=== PATIENT | female | born 2000 | race Caucasian/White ===

== ENCOUNTER 2021-03-10 11:26 | Emergency (ER) | payer OTHER, SELFPAY ==
--- NOTE | 2021-03-10 11:31 | ED.GENADULT ---
HPI - General Adult General Chief complaint: Chest Pain Stated complaint: elevated heart rate/heavy chest Time Seen by Provider: 03/10/21 11:31 Source: patient Mode of arrival: ambulatory Limitations: no limitations History of Present Illness HPI narrative: 20-year-old female patient presents to the [facility] with complaints of palpitations and chest heaviness that started this morning when she woke up. Patient states that her pulse started in the 170s this morning and is now gone down to the 150s. Patient states she does feel slightly lightheaded and dizzy. Denies any nausea, vomiting or diarrhea. Denies any fevers, body aches or chills. Patient does have history of anxiety and is medicated for it since she was a child. Patient states she has never had a panic attack before definitely have never had palpitations like this. Denies any of any cardiac history that she is aware of. Denies any family history of cardiac issues. Denies any shortness of breath at this time. Related Data Home Medications Medication Instructions Recorded Confirmed citalopram 20 mg PO DAILY 03/10/21 03/10/21 etonogestrel [Nexplanon] 68 mg SUBDERMAL DIRECTED 03/10/21 03/10/21 nortriptyline 50 mg PO PRN PRN 03/10/21 03/10/21 Allergies Allergy/AdvReac Type Severity Reaction Status Date / Time No Known Allergies Allergy Unknown Verified 03/10/21 11:33 Review of Systems Review of Systems: Narrative: CONSTITUTIONAL: Denies fever, chills, or sweats. EYES: Denies visual changes, redness, or discharge. ENT: Denies rhinorrhea, congestion, sore throat, or otalgia. CARDIOVASCULAR: Denies chest pain, positive palpitations, or edema. RESPIRATORY: Denies cough or dyspnea. GASTROINTESTINAL: Denies abdominal pain, nausea, vomiting, or diarrhea. GENITOURINARY: Denies dysuria or hematuria. SKIN: Denies rash or itching. MUSCULOSKELETAL: Denies back pain, joint pain, or myalgia. NEUROLOGIC: Denies headache, numbness, or weakness. Positive lightheadedness and dizziness PSYCHIATRIC: Denies anxiety or depression. [facility] Social History Social History Gender identity (if verbalized by the patient): Female Comments At the time of my signature I agree with nursing past medical history, surgical, social, and family history. There is no relevant family history pertinent to the presenting complaint. Exam Narrative: Exam Narrative: GENERAL: Well-appearing, well-nourished, and in no acute distress. HEAD: Normocephalic, atraumatic. EYES: PERRLA and EOMI. ENT: Nares clear, no rhinorrhea or epistaxis. Mucous membranes moist. NECK: Supple. No lymphadenopathy CHEST: Clear to auscultation. No respiratory distress. Patient able to talk in clear complete sentences, no tripoding noted. HEART: Tachycardia noted. No murmur heard. Strong peripheral pulses. ABDOMEN: Soft, nontender, nondistended, normal active bowel sounds. EXTREMITIES: Normal range of motion. No edema. SKIN: Warm, dry, no rash. NEURO: No focal deficits. Alert and oriented x3. Course Vital Signs Vital signs: Vital Signs Temperature 36.8 C 03/10/21 11:34 Pulse Rate 157 H 03/10/21 11:34 Respiratory Rate 18 03/10/21 11:34 Blood Pressure 133/94 H 03/10/21 11:34 Pulse Oximetry 99 03/10/21 11:34 Temperature 36.8 C 03/10/21 11:48 Pulse Rate 157 H 03/10/21 11:48 Respiratory Rate 18 03/10/21 11:48 Blood Pressure 133/94 H 03/10/21 11:48 Pulse Oximetry 99 03/10/21 11:48 Vital signs reviewed The patient has been informed that they may have pre-hypertension or Hypertension based on a BP reading in the department. I recommend that the patient call the primary care provider listed on their discharge instructions or a physician of their choice this week to arrange follow up for further evaluation of possible pre-hypertension or Hypertension Transfer Transfered to: [place] Transfer rationale: Tachycardia Accepting physician: Linda
[2021-03-10 11:34] VITALS: BP 133/94; PULSE 157; RESP 18; TEMP 36.8; O2SAT 99
--- NOTE | 2021-03-10 11:46 | ECG_ITS ---
Measurements Intervals [place] Rate: 150 P: 72 NM: 138 QRS: 87 QRSD: 81 T: 36 QT: 325 QTc: 514 Interpretive Statements SINUS TACHYCARDIA, POSSIBLE ATRIAL FLUTTER DELAYED PRECORDIAL R/S TRANSITION BASELINE ARTIFACT- I, II, AVR ABNORMAL ECG Electronically Signed On 03-10-2021 13:00:47 CDT by Jamal Rondon D.O.
[2021-03-10 11:48] VITALS: BP 133/94; PULSE 157; RESP 18; TEMP 36.8; O2SAT 99
== END 2021-03-10 12:10 | disposition short-term general hospital (02) ==
PROVIDERS: Emergency Provider Nurse Practitioner Family
DX: R00.2 Palpitations (principal); R94.31 Abnormal electrocardiogram [ECG] [EKG]
CPT/HCPCS: 93005; 99203; G0463

== ENCOUNTER 2021-03-10 12:20 | Emergency (ER) | payer OTHER, SELFPAY ==
[2021-03-10] VITALS (17 sets, daily range): BP systolic 116–142; BP diastolic 75–93; PULSE 95–155; RESP 10–23; TEMP 36.6; O2SAT 98–100
--- NOTE | ~2021-03-10 | XR_ITS ---
XR chest 2V DATE: 03/10/2021 12:46 INDICATION: Chest pain, chest tightness, heart palpitations, lightheadedness TECHNIQUE: PA and lateral views COMPARISON: None FINDINGS: Normal heart size. Pectus excavatum. No pulmonary infiltrate or consolidation, pleural effu arin or pulmonary vascular congestion or pneumothorax. Included skeletal structures are unremarkable otherwise. IMPRESSION: No active cardiopulmonary disease Pectus excavatum Reviewed, dictated and finalized at location A.
--- NOTE | 2021-03-10 12:26 | ECG_ITS ---
Measurements Intervals [place] Rate: 103 P: 59 NM: 147 QRS: 78 QRSD: 89 T: 36 QT: 338 QTc: 443 Interpretive Statements SINUS TACHYCARDIA BORDERLINE T WAVE ABNORMALITY- INFERIOR LEADS ABNORMAL ECG Electronically Signed On 03-10-2021 14:04:46 CDT by Jamal Rondon D.O.
--- NOTE | 2021-03-10 12:31 | ED.CHESTPAIN ---
HPI - Chest Pain General Chief Complaint: Chest Pain Stated Complaint: tachy Time Seen by Provider: 03/10/21 12:31 Source: patient Mode of arrival: ambulatory Limitations: no limitations History of Present Illness HPI narrative: Patient is a 20-year-old female who presents from urgent care for evaluation of palpitations and tachycardia. Patient states that she has had palpitations over the past 4 to 5 days, experiencing chest pain today. Denies any pleuritic pain, shortness of breath or weakness. No fever or chills. Patient states she has a pressure in the center of her chest without radiation to the back, jaw, shoulder or arm. No associated diaphoresis. Patient does feel anxious and lightheaded. She does not smoke. No recent travel. No history of Covid. She has received 1 vaccination and her vaccine series. She has a implanted Nexplanon for control. No history of blood clot. Related Data Home Medications Medication Instructions Recorded Confirmed citalopram 20 mg PO DAILY 03/10/21 03/10/21 etonogestrel [Nexplanon] 68 mg SUBDERMAL DIRECTED 03/10/21 03/10/21 nortriptyline 50 mg PO PRN PRN 03/10/21 03/10/21 Allergies Allergy/AdvReac Type Severity Reaction Status Date / Time No Known Allergies Allergy Unknown Verified 03/10/21 12:35 Review of Systems Review of Systems: Narrative: CONSTITUTIONAL: Denies fever, chills, or sweats. EYES: Denies visual changes, redness, or discharge. ENT: Denies rhinorrhea, congestion, sore throat, or otalgia. CARDIOVASCULAR: Reports chest pain and palpitations RESPIRATORY: Denies cough or dyspnea. GASTROINTESTINAL: Denies abdominal pain, nausea, vomiting, or diarrhea. GENITOURINARY: Denies dysuria or hematuria. SKIN: Denies rash or itching. MUSCULOSKELETAL: Denies back pain, joint pain, or myalgia. NEUROLOGIC: Denies headache, numbness, or weakness. PSYCHIATRIC: Reports anxiety [facility] Social History Social History Gender identity (if verbalized by the patient): Female Exam Narrative: Exam Narrative: GENERAL: Awake, alert, conversant HEAD: Normocephalic, atraumatic. EYES: PERRLA and EOMI. ENT: Nares clear, no rhinorrhea or epistaxis. Mucous membranes moist. NECK: Supple. CHEST: No respiratory distress, breathing even and non labored HEART: Tachycardic rate, sinus rhythm, no murmurs, rubs or gallops ABDOMEN:Non distended, non tender EXTREMITIES: Normal range of motion. No edema. SKIN: Warm, dry, no rash. NEURO:No focal deficits. Alert and oriented x3 Course Vital Signs Vital signs: Vital Signs Pulse Rate 152 H 03/10/21 12:30 Respiratory Rate 10 L 03/10/21 12:30 Pulse Oximetry 100 03/10/21 12:30 Pulse Rate 98 03/10/21 15:01 Respiratory Rate 13 03/10/21 15:01 Blood Pressure 116/75 03/10/21 15:00 Pulse Oximetry 98 03/10/21 15:01 MDM - Chest Pain MDM Narrative Medical decision making narrative: Patient presenting for evaluation of palpitations and chest pain. At the time of assessment, ABCs are intact and vital signs are notable for sinus tachycardia in the 150s. No hypotension. Patient is somewhat anxious but given the rate, seems more consistent with possible atrial dysrhythmia. IV access obtained and labs were drawn. Laboratory results are reassuring. No electrolyte derangement. Patient is not hyperthyroid. Troponins are unremarkable. Chest x-ray unremarkable. D-dimer is not elevated, thus CTA not obtained. Patient was given a dose of Lopressor and heart rate improved to the 90s. Spoke with cardiology, Dr. Monahan recommended oral Lopressor 12.5 daily and follow-up with them tomorrow in office. Differential Diagnosis Differential diagnosis: Likely stable angina, atypical chest pain and chest pain Lab Data Attestation: I reviewed the patient's lab results. Result diagrams: 03/10/21 12:36 03/10/21 12:36 Labs: Lab Results 03/10/21 03/10/21
[2021-03-10 12:46] LABS: Basophils Percent Auto 0.5 % (0.2-1.2); Eosinophils Percent Auto 0.3 % (0-4.4); Hematocrit 45.3 % (37.0-47.0); Hemoglobin 15.6 g/dL (12.0-15.0); Immature Granulocyte Absolute 0.02 K/mm3 (0.00-0.031); Immature Granulocyte Percent A 0.3 % (0-0.5); Lymphocytes Absolute Auto 2.23 K/mm3 (0.9-3.2); Lymphocytes Percent Auto 35.2 % (18.3-44.2); Mean Corpuscular HGB Conc 34.4 g/dl (32-36); Mean Corpuscular Hemoglobin 31.1 pg (26-34); Mean Corpuscular Volume 90.2 fl (80-100); Mean Platelet Volume 10.4 fl (7.4-10.4); Monocytes Absolute Auto 0.3 K/mm3 (0.1-0.6); Monocytes Percent Auto 5.2 % (2.6-8.5); Neutrophils Absolute Auto 3.7 K/mm3 (1.3-6.7); Neutrophils Percent Auto 58.5 % (45.5-73.1); Platelet Count Result 326 k/mm3 (150-375); Red Blood Count 5.02 M/mm3 (4.2-5.4); Red Cell Distribution Width 12.5 % (11.5-14.5); White Blood Count 6.3 K/mm3 (4.5-10.0)
[2021-03-10 12:55] LABS: Anion Gap 8 mmol/L (8-16); Blood Urea Nitrogen 9 mg/dL (7-17); Calcium 9.5 mg/dL (8.4-10.2); Carbon Dioxide 28 mmol/L (22-30); Chloride 103 mmol/L (98-107); Estimated CRCL calculation 81 ml/min; Estimated Glomerular Filt Rate > 60; Glucose 114 mg/dL (65-105); Potassium 3.9 mmol/L (3.4-5.0); Sodium 139 mmol/L (137-145)
--- NOTE | 2021-03-10 12:58 | PC.NURSE ---
called lab to add on ddmier and tsh. Spoke with Loren
[2021-03-10 13:00] LABS: INR 0.9; Prothrombin Time 12.4 Seconds (11.1-14.7)
[2021-03-10 13:01] LABS: Partial Thromboplastin Time 31.4 SECONDS (22.3-36.8)
[2021-03-10] MEDS: SODIUM CHLORIDE 0.9% IV 1,000 ML 999 ML IV CONT (13:02)
[2021-03-10] MEDS: ASPIRIN 81 MG CHEWABLE TABLET 324 MG PO (13:02)
[2021-03-10 13:07] LABS: Troponin I < 0.012 ng/mL (0.000-0.034)
[2021-03-10 13:09] LABS: D Dimer 0.35 ug/mL (<0.48)
[2021-03-10] MEDS: METOPROLOL TARTRATE INJ 5 MG/5 ML VIAL IV PUSH (13:18)
--- NOTE | 2021-03-10 13:54 | ECG_ITS ---
Measurements Intervals [place] Rate: 152 P: 75 CT: 139 QRS: 85 QRSD: 85 T: 49 QT: 318 QTc: 507 Interpretive Statements SINUS TACHYCARDIA, POSSIBLE ATRIAL FLUTTER DELAYED PRECORDIAL R/S TRANSITION BORDERLINE ST-T WAVE ABNORMALITY- ANTEROLAT/INF LEADS ABNORMAL ECG Electronically Signed On 03-10-2021 20:11:54 CDT by Jamal Rondon D.O.
[2021-03-10 15:37] LABS: Troponin I < 0.012 ng/mL (0.000-0.034)
--- NOTE | 2021-03-10 20:05 | PC.NURSE ---
Ritu on the phone requesting approval to dispense 25mg tablets and cut that tablet in half to equal 12.5mg (prescribed amount). Per ERP Dr. Mcarthur that is ok.
== END 2021-03-10 15:53 | disposition home or self-care (01) ==
PROVIDERS: Emergency Provider Emergency Medicine; PCP Internal Medicine
DX: R00.2 Palpitations (principal); R00.0 Tachycardia, unspecified; R94.31 Abnormal electrocardiogram [ECG] [EKG]
CPT/HCPCS: 36415; 71046; 80048; 84443; 84484; 85025; 85380; 85610; 85730; 93005; 96361; 96374; 99284; A9270; J7030

== ENCOUNTER 2021-03-19 21:08 | Emergency (ER) | payer OTHER, SELFPAY ==
--- NOTE | ~2021-03-19 | XR_ITS ---
EXAMINATION: XR chest 2V DATE: 03/19/2021 21:36 INDICATION: Shortness of breath and tachycardia TECHNIQUE: PA and lateral views of the chest were obtained. COMPARISON: Chest radiograph dated 03/10/21 FINDINGS: The lungs remain clear with no focal airspace opacities, pulmonary edema, pleural effusion or pneumot horax. The cardiomediastinal silhouette is normal. Visualized bones and soft tissues are unremarkable . IMPRESSION: 1. Normal chest radiograph. Reviewed, dictated and finalized at location A. IMPRESSION: 1. Normal chest radiograph.
[2021-03-19 21:18] VITALS: BP 138/100; PULSE 144; RESP 18; TEMP 36.9; O2SAT 100
--- NOTE | 2021-03-19 21:22 | ECG_ITS ---
Measurements Intervals [place] Rate: 136 P: 69 CO: 137 QRS: 99 QRSD: 86 T: 9 QT: 330 QTc: 498 Interpretive Statements SINUS TACHYCARDIA RIGHT AXIS DEVIATION ST-T WAVE ABNORMALITY IN ANTEROLAT/INF LEADS- CONSIDER ISCHEMIA ABNORMAL ECG Electronically Signed On 03-20-2021 7:12:42 CDT by Jamal Rondon D.O.
[2021-03-19 21:38] LABS: Basophils Percent Auto 0.4 % (0.2-1.2); Eosinophils Absolute Auto 0.1 K/mm3 (0-0.3); Eosinophils Percent Auto 1.1 % (0-4.4); Hematocrit 43.8 % (37.0-47.0); Hemoglobin 15.2 g/dL (12.0-15.0); Immature Granulocyte Absolute 0.01 K/mm3 (0.00-0.031); Immature Granulocyte Percent A 0.1 % (0-0.5); Lymphocytes Absolute Auto 3.19 K/mm3 (0.9-3.2); Lymphocytes Percent Auto 43.2 % (18.3-44.2); Mean Corpuscular HGB Conc 34.7 g/dl (32-36); Mean Corpuscular Hemoglobin 30.8 pg (26-34); Mean Corpuscular Volume 88.8 fl (80-100); Mean Platelet Volume 10.7 fl (7.4-10.4); Monocytes Absolute Auto 0.5 K/mm3 (0.1-0.6); Neutrophils Absolute Auto 3.6 K/mm3 (1.3-6.7); Neutrophils Percent Auto 48.2 % (45.5-73.1); Platelet Count Result 327 k/mm3 (150-375); Red Blood Count 4.93 M/mm3 (4.2-5.4); Red Cell Distribution Width 12.1 % (11.5-14.5); White Blood Count 7.4 K/mm3 (4.5-10.0)
[2021-03-19 21:46] LABS: Anion Gap 11 mmol/L (8-16); Blood Urea Nitrogen 10 mg/dL (7-17); Calcium 10.6 mg/dL (8.4-10.2); Carbon Dioxide 26 mmol/L (22-30); Chloride 103 mmol/L (98-107); Estimated CRCL calculation 90 ml/min; Estimated Glomerular Filt Rate > 60; Glucose 97 mg/dL (65-105); Potassium 3.2 mmol/L (3.4-5.0); Sodium 140 mmol/L (137-145)
[2021-03-19 21:58] LABS: Troponin I < 0.012 ng/mL (0.000-0.034)
[2021-03-19 22:04] LABS: Prothrombin Time 13.6 Seconds (11.1-14.7)
[2021-03-19 22:06] LABS: Partial Thromboplastin Time 31.5 SECONDS (22.3-36.8)
--- NOTE | 2021-03-19 22:45 | ED.CHESTPAIN ---
HPI - Chest Pain General Chief Complaint: Chest Pain Stated Complaint: chest pain Time Seen by Provider: 03/19/21 22:41 Source: patient Mode of arrival: ambulatory Limitations: no limitations History of Present Illness HPI narrative: Patient is a 20-year-old female complaining of chest pain, midsternal, 610, sharp, nonradiating accompanied by palpitations shortness of breath that started today. Patient was seen here last week for the same complaints. Patient states that she was prescribed metoprolol and scheduled to see a hand dry cleaner to have an echo and Holter monitor placed. Patient admits to not taking metoprolol tonight. Related Data Home Medications Medication Instructions Recorded Confirmed citalopram 20 mg PO DAILY 03/10/21 03/10/21 etonogestrel [Nexplanon] 68 mg SUBDERMAL DIRECTED 03/10/21 03/10/21 nortriptyline 50 mg PO PRN PRN 03/10/21 03/10/21 Allergies Allergy/AdvReac Type Severity Reaction Status Date / Time No Known Allergies Allergy Unknown Verified 03/10/21 12:35 Review of Systems Review of Systems: All systems reviewed & are unremarkable except as noted in HPI and below Constitutional: Constitutional: Denies body ache(s), Denies chills, Denies excessive sweating, Denies fatigue, Denies fever(s), Denies headache(s), Denies lethargy, Denies malaise, Denies weakness and Denies weight loss Eyes: Eyes: Denies blurry vision, Denies change in vision and Denies loss of vision ENT: Denies dizziness, Denies ear discharge, Denies headache(s), Denies lip swelling, Denies epistaxis, Denies nasal congestion, Denies neck pain, Denies throat swelling and Denies tongue swelling Cardiovascular: Cardiovascular: Denies diaphoresis, Reports rapid heart rate, Denies edema, Denies irregular heart rhythm, Denies lightheadedness, Denies dyspnea and Denies dyspnea on exertion Respiratory: Respiratory: Denies chest congestion, Denies cough and Denies hemoptysis Gastrointestinal: Gastrointestinal: Denies abdominal pain, Denies melena, Denies hematochezia, Denies diarrhea, Denies nausea, Denies vomiting and Denies hematemesis Musculoskeletal: Musculoskeletal: Denies abnormal gait, Denies deformity, Denies joint swelling, Denies limited range of motion, Denies neck pain and Denies numbness Neurologic: Denies Abnormal speech present, Denies abnormal gait, Denies confusion, Denies dizziness, Denies headache(s), Denies focal weakness, Denies loss of vision, Denies numbness, Denies Other visual disturbances, Denies Sensory deficit (Neuro) and Denies weakness Psychiatric: Psychiatric: Denies confusion, Denies depression, Denies auditory hallucinations, Denies homicidal ideation and Denies suicidal ideation Endocrine: Endocrine: Denies cold intolerance, Denies excessive sweating, Denies fatigue, Denies heat intolerance and Denies palpitations Hematologic/Lymphatic: Hematologic/Lymphatic: Denies easy bleeding and Denies easy bruising Allergic/Immunologic: Allergic/Immunologic: Denies lip swelling, Denies throat swelling and Denies tongue swelling [facility] Social History Social History Gender identity (if verbalized by the patient): Female Comments Past medical history: Tachycardia Family history: Negative for PA, negative for aneurysm negative for PE Social history: Non-smoker no EtOH or drug use Exam Const: General: cooperative, healthy appearing, comfortable, no acute distress, well developed, alert and awake; No confusion Orientation/consciousness: oriented to person, oriented to place, oriented to time, patient oriented x3 and No confusion Limitations: no limitations HENMT: Head: normal to inspection, normocephalic and atraumatic Ears: hearing grossly normal bilaterally, TM normal on the right and TM normal on the left General nose exam: Normal external nose present, Normal nares present and No nasal discharge present Face and sinus: normal facial exam Mouth: Yes Normal or
[2021-03-19] MEDS: METOPROLOL TARTRATE INJ 5 MG/5 ML VIAL IV PUSH (23:13)
[2021-03-19] MEDS: ASPIRIN 81 MG CHEWABLE TABLET 324 MG PO (23:13)
[2021-03-19 23:28] LABS: Add Urine Microscopic? YES; Appearance Urine Clear (Clear); Bacteria Urine Trace /hpf; Bilirubin Urine Negative (Negative); Blood Urine 2+ (Negative); Color Urine Straw (Yellow); Glucose Urine UA Negative (Negative); Ketones Urine Negative (Negative); Leukocyte Esterase Ur Negative LEU/UL (Negative); Nitrate Urine Negative (Negative); Protein Urine Negative (Negative); RBC Urine 0-2 /hpf (0-2); Squamous Epithelial Cell Urine Few /hpf (Few); Urobilinogen Urine Negative mg/dL (<2.0); WBC Urine 0-3 /hpf
[2021-03-19 23:35] LABS: Specific Grav Ur 1.003 (1.001-1.035)
[2021-03-19] MEDS: BELLADONNA ALK/PHENOB ELIX 10 ML, MAG HYDROX/ALUMINUM HYD/SIMETH 30 ML, LIDOCAINE HCL 2... PO (23:37)
[2021-03-20 00:42] VITALS: BP 121/79; PULSE 87; RESP 16; O2SAT 99
[2021-03-20 00:59] LABS: Troponin I < 0.012 ng/mL (0.000-0.034)
[2021-03-20 01:22] VITALS: BP 128/83; PULSE 97; RESP 16; TEMP 36.7; O2SAT 100
== END 2021-03-20 01:23 | disposition home or self-care (01) ==
PROVIDERS: Emergency Medicine; Emergency Provider Emergency Medicine; PCP Internal Medicine
DX: R07.89 Other chest pain (principal); R00.2 Palpitations; E87.6 Hypokalemia; R00.0 Tachycardia, unspecified; R94.31 Abnormal electrocardiogram [ECG] [EKG]
CPT/HCPCS: 36415; 71046; 80048; 81001; 81025; 84484; 85025; 85380; 85610; 85730; 93005; 96374; 99284; A9270

== ENCOUNTER 2021-04-18 16:01 | Emergency (ER) | payer OTHER, SELFPAY ==
--- NOTE | ~2021-04-18 | XR_ITS ---
XR soft tissue neck 04/18/2021 16:34 Indication: Neck swelling. Procedure: 2 views of the neck soft tissues Comparison: No prior studies for comparison. Findings: No prevertebral soft tissue swelling. No evidence for abnormality of the epiglottis or arye piglottic folds. No subglottic narrowing. Lung apices are normal. Straightening of cervical lordosis. Impression: 1: No significant neck soft tissue abnormality. Reviewed, dictated and finalized at location A. Impression: 1: No significant neck soft tissue abnormality.
--- NOTE | 2021-04-18 16:04 | ED.URI ---
HPI - URI/Sore Throat General Chief Complaint: Upper Respiratory Infection Stated Complaint: neck swelling/numbness Time Seen by Provider: 04/18/21 16:04 Source: patient and RN notes reviewed History of Present Illness HPI Narrative: Patient is a 20-year-old female who presents the urgent care with complaints of feeling of tightness and swelling in the throat. Patient states that it is painful to massage/touch but is not painful to swallow. Denies of a sore throat. States that she does have a history of anxiety and went off her medications after 12 years approximately 7 weeks ago. Patient states she has gone back on them and has been taking them compliantly for the last 5 weeks. Patient states she is recently been diagnosed with sinus tachycardia/arrhythmia and has not been taking her beta-radha. Patient is supposed to be changing medications and has not been placed on her new heart medication. Patient states she is also been in between physicians and was told to find an adult doctor which she has not yet followed up with. Patient is denying of any fevers, nausea, vomiting. Patient has been on amoxicillin for the last 4 days after being diagnosed with tinnitus and possible ear infection on the right, at a local urgent care. No other acute complaints. No acute distress noted. Patient aware of the plan of care. Some parts of this dictation were generated by voice recognition software and may contain typographical and/or grammatical inaccuracies. Related Data Home Medications Medication Instructions Recorded Confirmed citalopram 20 mg PO DAILY 03/10/21 03/10/21 etonogestrel [Nexplanon] 68 mg SUBDERMAL DIRECTED 03/10/21 03/10/21 nortriptyline 50 mg PO PRN PRN 03/10/21 03/10/21 amoxicillin-pot clavulanate tablet 04/18/21 Allergies Allergy/AdvReac Type Severity Reaction Status Date / Time No Known Allergies Allergy Unknown Verified 03/10/21 12:35 Review of Systems Review of Systems: Narrative: CONSTITUTIONAL: Denies fever, chills, or sweats. EYES: Denies visual changes, redness, or discharge. ENT: Denies rhinorrhea, congestion. Reports of tightness and swelling of the neck CARDIOVASCULAR: Denies chest pain, palpitations, or edema. RESPIRATORY: Denies cough or dyspnea. GASTROINTESTINAL: Denies abdominal pain, nausea, vomiting, or diarrhea. GENITOURINARY: Denies dysuria or hematuria. SKIN: Denies rash or itching. MUSCULOSKELETAL: Denies back pain, joint pain, or myalgia. NEUROLOGIC: Denies headache, numbness, or weakness. All other systems reviewed are negative, except as documented in HPI. PMFSH Social History Social History Gender identity (if verbalized by the patient): Female Comments At the time of my signature, I reviewed and agree with the nursing past medical, surgical, social, and family history. There is no relevant family history pertinent to the patient complaint. Exam Narrative: Exam Narrative: GENERAL: This is a well-nourished, well-developed patient, in no apparent distress. HEAD: normocephalic, atraumatic. EYES: PERRL. Sclera clear/white. Vision is grossly intact. EARS: External ears normal, auditory canals clear and without drainage, TMs normal without perforation. Hearing grossly intact. NOSE: External nose normal with no obvious nasal discharge, nares without redness, no rhinorrhea. THROAT: Mucous membranes moist, posterior pharynx clear. NECK: Neck supple, diffuse tenderness under the chin into the anterior neck without lymphadenopathy, masses or thyromegaly. CARDIOVASCULAR: Tachycardia without murmurs, gallops, or rubs. RESPIRATORY: Clear to auscultation. Breath sounds equal bilaterally. No wheezes, rales, or rhonchi. SKIN: warm, intact with no suspicious lesions or rash, good texture and turgor. NEURO: awake, alert, and oriented to person, place and time. There were no obvious focal neurologic abnormalities. EXTREMITIES: No clubbing, cyanos
[2021-04-18 16:05] VITALS: BP 129/89; PULSE 145; RESP 20; TEMP 37.2; O2SAT 99
== END 2021-04-18 16:50 | disposition home or self-care (01) ==
PROVIDERS: Emergency Provider Nurse Practitioner Family
DX: F41.9 Anxiety disorder, unspecified (principal)
CPT/HCPCS: 70360; 99213; G0463

== ENCOUNTER 2022-06-30 13:21 | Outpatient (CLI) | payer OTHER, SELFPAY ==
--- NOTE | ~2022-06-30 | XR_ITS ---
EXAMINATION: XR chest 2V 06/30/2022 13:46 INDICATION: Dyspnea. Productive cough.. PROCEDURE: 2 view chest COMPARISON: 03/19/2021 FINDINGS: The lungs are clear. The cardiomediastinal silhouette is within normal limits. There are no pleural effusions. There is no pneumothorax suspected. There is pectus excavatum. IMPRESSION: 1: NO ACUTE CARDIOPULMONARY DISEASE. Reviewed, dictated and finalized at location A.
== END 2022-06-30 13:22 | disposition home or self-care (01) ==
PROVIDERS: Visit Provider Internal Medicine
DX: U07.1 COVID-19 (principal)
CPT/HCPCS: 71046

== ENCOUNTER 2022-07-30 17:39 | Outpatient (CLI) | payer OTHER, SELFPAY ==
--- NOTE | ~2022-07-30 | XR_ITS ---
EXAMINATION: XR ribs RT 2V w CXR 2V DATE: 07/30/2022 18:09 INDICATION: Right chest wall pain TECHNIQUE: PA and lateral views of the chest and 3 views of the right ribs were obtained. COMPARISON: 07/10/2022 FINDINGS: Pectus excavatum. No rib fractures identified. No focal airspace opacities, pulmonary edema, pleural effusion or pneumothorax. Cardiomediastinal silhouette is normal. Mild thoracic spondylosis. IMPRESSION: 1. No rib fracture or acute cardiopulmonary disease. Reviewed, dictated and finalized at location A.
== END 2022-07-30 17:40 | disposition home or self-care (01) ==
PROVIDERS: PCP Internal Medicine; Visit Provider Internal Medicine
DX: R07.89 Other chest pain (principal)
CPT/HCPCS: 71046; 71100

== ENCOUNTER → 2022-08-05 13:57 | Outpatient (CLI) | payer OTHER, SELFPAY ==
--- NOTE | ~2022-08-05 | US_ITS ---
US breast RT complete DATE: 08/05/2022 14:24 INDICATION: Right upper breast fullness TECHNIQUE: High-resolution ultrasound imaging and color flow imaging of complete right breast includi ng all 4 quadrants and subareolar area COMPARISON: None FINDINGS: At 12:00 5 cm from the nipple there is a parallel circumscribed hypoechoic lesion measuring 2.1 x 5 x 5.2 mm, without internal vascularity or posterior shadowing, benign in appearance. No suspicious mass or shadowing is detected anywhere in the right breast. IMPRESSION: BI-RADS Category 2: Benign Recommendation: Routine mammographic screening beginning at age 40 Reviewed, dictated and finalized at Location A. Reviewed, dictated and finalized at location A.
== END ==
PROVIDERS: PCP Internal Medicine; Visit Provider Internal Medicine
DX: N64.89 Other specified disorders of breast (principal)
CPT/HCPCS: 76641

== ENCOUNTER 2022-08-11 17:51 | Emergency (ER) | payer OTHER, SELFPAY ==
--- NOTE | ~2022-08-11 | XR_ITS ---
EXAMINATION: XR chest 2V Exam Date/Time: 08/11/2022 18:30 CDT HISTORY: INTER. CHEST PAIN X 1 HOUR, HX TACHYCARDIA Comparison: 07/30/2022. RESULT: Lines, tubes, and devices: None. Lungs and pleura: Clear. Cardiomediastinal silhouette: Stable. Other: No acute osseous or upper abdominal finding. IMPRESSION: No acute cardiopulmonary process. Reviewed, dictated and finalized at location K.
--- NOTE | 2022-08-11 17:52 | ECG_ITS ---
Measurements Intervals [place] Rate: 126 P: 59 [place]: 146 QRS: 85 QRSD: 81 T: 18 QT: 335 QTc: 487 Interpretive Statements SINUS TACHYCARDIA ST-T WAVE ABNORMALITY IN ANTEROLATERAL LEADS- CONSIDER ISCHEMIA BASELINE WANDER- V4 ABNORMAL ECG COMPARED TO ECG 03/19/2021 21:28:24 NO SIGNIFICANT CHANGES Electronically Signed On 08-11-2022 21:25:16 CDT by Jamal Rondon D.O.
[2022-08-11 17:53] VITALS: BP 132/93; PULSE 129; RESP 20; TEMP 36.8; O2SAT 100
[2022-08-11 18:13] LABS: Basophils Percent Auto 0.4 % (0.2-1.2); Eosinophils Absolute Auto 0.1 K/mm3 (0-0.3); Eosinophils Percent Auto 1.1 % (0-4.4); Hematocrit 43.2 % (37.0-47.0); Hemoglobin 14.7 g/dL (12.0-15.0); Immature Granulocyte Absolute 0.02 K/mm3 (0.00-0.031); Immature Granulocyte Percent A 0.4 % (0-0.5); Lymphocytes Absolute Auto 1.33 K/mm3 (0.9-3.2); Lymphocytes Percent Auto 24.1 % (18.3-44.2); Mean Corpuscular Hemoglobin 31.8 pg (26-34); Mean Corpuscular Volume 93.5 fl (80-100); Mean Platelet Volume 10.7 fl (7.4-10.4); Monocytes Absolute Auto 0.2 K/mm3 (0.1-0.6); Monocytes Percent Auto 4.3 % (2.6-8.5); Neutrophils Absolute Auto 3.9 K/mm3 (1.3-6.7); Neutrophils Percent Auto 69.7 % (45.5-73.1); Platelet Count Result 278 k/mm3 (150-375); Red Blood Count 4.62 M/mm3 (4.2-5.4); Red Cell Distribution Width 12.6 % (11.5-14.5); White Blood Count 5.5 K/mm3 (4.5-10.0)
[2022-08-11 18:25] LABS: Alanine Aminotransferase 56 U/L (6-35); Alkaline Phosphatase 72 U/L (38-126); Anion Gap 12 mmol/L (8-16); Aspartate Amino Transferase 50 U/L (14-36); Bilirubin,Total 0.7 mg/dL (0.2-1.3); Blood Urea Nitrogen 9 mg/dL (7-17); Calcium 9.8 mg/dL (8.4-10.2); Carbon Dioxide 25 mmol/L (22-30); Chloride 103 mmol/L (98-107); Estimated CRCL calculation 89 ml/min; Estimated Glomerular Filt Rate > 60; Glucose 131 mg/dL (65-110); INR 1.1; Lipase 78 U/L (23-300); Potassium 3.6 mmol/L (3.4-5.0); Prothrombin Time 13.4 Seconds (11.1-14.7); Sodium 140 mmol/L (137-145)
[2022-08-11 18:37] LABS: Troponin I < 0.012 ng/mL (0.000-0.034)
[2022-08-11 19:21] VITALS: BP 120/93; PULSE 111; RESP 15; O2SAT 100
[2022-08-11 19:25] VITALS: PULSE 111
[2022-08-11] MEDS: KETOROLAC 15 MG/ML VIAL (*BKC) IV PUSH (20:20)
[2022-08-11] MEDS: SODIUM CHLORIDE 0.9% IV 1,000 ML 999 ML IV CONT (20:20)
[2022-08-11 20:37] VITALS: BP 103/64; PULSE 97; RESP 15; O2SAT 100
--- NOTE | 2022-08-11 20:41 | ED.CHESTPAIN ---
HPI - Chest Pain General Chief Complaint: Chest Pain Stated Complaint: INT SHARP CHEST PAIN Time Seen by Provider: 08/11/22 19:40 Source: patient and RN notes reviewed Mode of arrival: ambulatory Limitations: no limitations History of Present Illness HPI narrative: This is a 21 year old female with history of tachycardia who presents for evaluation chest pain. She states approximately 1 hours prior to arrival she developed sharp left chest pain. She also reports sharp pain shooting down her left arm. She reports this pain has intermittent but she does not have pain now. She denies diaphoresis, sob, nausea or vomiting. She is unsure of any exacerbating factors. Related Data Home Medications Medication Instructions Recorded Confirmed citalopram 20 mg tablet 20 mg PO DAILY 03/10/21 08/11/22 etonogestrel 68 mg subdermal 68 mg subdermal DIRECTED 03/10/21 08/11/22 implant (Nexplanon) nortriptyline 50 mg capsule 50 mg PO PRN PRN Migraine Headache 03/10/21 08/11/22 atenolol 25 mg tablet mg 08/11/22 Allergies Allergy/AdvReac Type Severity Reaction Status Date / Time No Known Allergies Allergy Unknown Verified 08/11/22 19:22 Review of Systems Review of Systems: All systems reviewed & are unremarkable except as noted in HPI and below Constitutional: Constitutional: Denies chills, Denies fatigue and Denies fever(s) ENT: Denies nasal congestion and Denies sore throat Cardiovascular: Cardiovascular: Reports chest pain and Denies radiating jaw, neck or arm pain Gastrointestinal: Gastrointestinal: Denies abdominal pain, Denies bloating, Denies nausea and Denies vomiting PMFSH Past Medical History Medical History (Updated 08/12/22 @ 00:00 by Chong Cerrato) Anxiety Tachycardia Social History Social History (Updated 08/11/22 @ 21:48 by Lyssa Mcarthur MD) Smoking status: Never smoker Gender identity (if verbalized by the patient): Female Exam Const: General: healthy appearing and alert Nutritional Appearance: well nourished Orientation/consciousness: patient oriented x3 HENMT: Head: normal to inspection Eyes: EOM: EOMs intact bilaterally Chest: Chest palpation & inspection: tenderness (left upper chest tenderness) Resp: Effort & Inspection: normal respiratory effort Auscultation: clear to auscultation bilaterally Cardio: Rate: tachycardic Rhythm: regular rhythm Heart sounds: no murmurs Other: bilateral palpable radial pulses that are equal, bilateral pedal pulses GI: GI Palp: Yes Soft to palpation, No Tenderness to palpation present (GI), No Guarding due to palpation present (GI) and No Rigid due to palpation Auscultation: normal bowel sounds Back/Spine/Pelvis: Back: no CVA tenderness Skin: General skin exam: normal color Rashes: no rashes Wounds: no wounds Neuro: General: patient oriented x3, moves all extremities and CN's II-XI intact bilaterally Extrem: General: normal to inspection Psych: Mental Status: mental status grossly normal Affect: normal affect Attitude: cooperative Course Reevaluation(s) Reevaluation #1: Patient does not have any pain. I discussed labs are unremarkable. HR 97. She has reproducible chest wall pain. Negative d dimer and troponin. No pneumonia. Unlikely aortic etiology. PAtient will follow up with quality control specialist. Date: 08/11/22 Time: 21:49 Vital Signs Vital signs: Vital Signs Temperature 98.3 F 08/11/22 17:53 Pulse Rate 129 H 08/11/22 17:53 Respiratory Rate 20 08/11/22 17:53 Blood Pressure 132/93 H 08/11/22 17:53 Pulse Oximetry 100 08/11/22 17:53 Oxygen Delivery Room Air 08/11/22 17:53 Temperature 98.3 F 08/11/22 17:53 Pulse Rate 91 08/11/22 22:01 Respiratory Rate 19 08/11/22 22:01 Blood Pressure 117/78 08/11/22 22:01 Pulse Oximetry 100 08/11/22 22:01 Oxygen Delivery Room Air 08/11/22 17:53 MDM - Chest Pain Lab Data Attestation: I reviewed the patient's lab results.
[2022-08-11 20:57] LABS: D Dimer < 0.27 ug/mL (<0.48)
[2022-08-11 21:21] LABS: Troponin I < 0.012 ng/mL (0.000-0.034)
[2022-08-11 22:01] VITALS: BP 117/78; PULSE 91; RESP 19; O2SAT 100
== END 2022-08-11 22:02 | disposition home or self-care (01) ==
PROVIDERS: Emergency Medicine; Emergency Provider General Practice; PCP Internal Medicine
DX: R07.89 Other chest pain (principal); F41.9 Anxiety disorder, unspecified; R00.0 Tachycardia, unspecified
CPT/HCPCS: 36415; 71046; 80053; 83690; 84484; 85025; 85380; 85610; 85730; 93005; 96361; 96374; 99284; J1885; J7030

== ENCOUNTER → 2022-09-14 14:45 | Outpatient (CLI) | payer OTHER, SELFPAY ==
--- NOTE | ~2022-09-14 | MR_ITS ---
EXAMINATION: MR brain IAC wo/w con DATE: 09/14/2022 16:09 INDICATION: Atypical facial pain. Right-sided tinnitus. TECHNIQUE: Magnetic resonance imaging (MRI) of the brain, brainstem, and internal auditory canals was performed without and with 13 mL MultiHance intravenous contrast. COMPARISON: None. FINDINGS: There is no intracranial hemorrhage, acute infarction, or abnormal intracranial mass lesion . The ventricles are normal. The trigeminal nerves are normal. No vascular loop compression. The para nasal sinuses are clear. The orbits are normal. The internal auditory canals and inner and middle ear s are normal. The mastoid air cells are normal. There is developmental anterior and posterior fusion at C2-C3. IMPRESSION: 1. Normal brain. Reviewed, dictated and finalized at location A. IMPRESSION: 1. Normal brain.
== END ==
PROVIDERS: PCP Internal Medicine; Visit Provider Otolaryngology
DX: G50.1 Atypical facial pain (principal); H93.11 Tinnitus, right ear
CPT/HCPCS: 70553; A9577

== ENCOUNTER 2022-11-14 15:12 | Emergency (ER) | payer OTHER, SELFPAY ==
--- NOTE | 2022-11-14 17:17 | PC.NURSE ---
Pt called mult. times for triage, no answer, did not tell stock pitcher she decided against being seen or make aware was leaving ED.
== END 2022-11-14 17:53 | disposition left against medical advice (07) ==
PROVIDERS: PCP Internal Medicine
DX: Z53.21 Procedure and treatment not carried out due to patient leaving prior to being seen by health care provider (principal)
CPT/HCPCS: 99199

== ENCOUNTER 2023-01-05 16:15 | Outpatient (CLI) | payer OTHER, SELFPAY ==
--- NOTE | ~2023-01-05 | US_ITS ---
EXAMINATION: US venous doppler LE RT DATE: 01/05/2023 16:54 INDICATION: RIGHT CALF PAIN . TECHNIQUE: Grayscale images without and with compression and Doppler images of the right lower extrem ity veins were obtained. COMPARISON: None FINDINGS: The right common femoral vein, profunda (deep) femoral vein, femoral vein, popliteal vein, peroneal v ein, posterior tibial veins, gastrocnemius vein, and greater saphenous vein are patent. IMPRESSION: 1. Patent right lower extremity veins. No evidence of deep venous thrombosis. Reviewed, dictated and finalized at location K. ISTICAL ASSISTANT
== END 2023-01-05 16:16 | disposition home or self-care (01) ==
PROVIDERS: PCP Internal Medicine; Visit Provider Internal Medicine
DX: M79.661 Pain in right lower leg (principal)
CPT/HCPCS: 93971

== ENCOUNTER 2023-07-02 10:22 | Emergency (ER) | payer OTHER, SELFPAY ==
--- NOTE | ~2023-07-02 | CT_ITS ---
EXAMINATION: CT brain wo con DATE: 07/02/2023 13:01 INDICATION: Head injury. TECHNIQUE: Computed tomography (CT) of the head was performed without intravenous contrast. The mA wa s adjusted according to patient size. Iterative reconstruction technique was employed. The dose-lengt h product was 605.33 mGy-cm. COMPARISON: Brain MRI 09/14/2022 FINDINGS: There is no intracranial hemorrhage, acute infarction, or abnormal intracranial mass lesion . The ventricles are normal in size. The orbits are normal. The mastoid air cells are normal. The par anasal sinuses are clear. IMPRESSION: 1. Normal brain. Reviewed, dictated and finalized at location A. IMPRESSION: 1. Normal brain.
[2023-07-02 10:38] VITALS: BP 115/81; PULSE 110; RESP 18; TEMP 36.7; O2SAT 100
--- NOTE | 2023-07-02 12:45 | ED.HEATRA ---
HPI - Head Injury General Chief complaint: Head Injury Stated complaint: head injury Time Seen by Provider: 07/02/23 11:33 History of Present Illness HPI Narrative: 22-year-old female reports for evaluation from her doctor's office after a head injury. Patient states approximately 12 hours ago, she was at work and hit the top of her head on the arm of an x-ray machine. States she felt dazed after hitting her head but denies LOC. Reports she went to her PCPs office today who advised her to come to the ED due to a pupillary afferent defect found on exam. Patient states a few hours after the head injury, she felt that her left pupil was larger than her right. She is reporting a headache and photophobia. She denies vision changes, focal numbness or weakness, vomiting, LOC, dizziness or lightheadedness, neck pain or other injury. Related Data Home Medications Medication Instructions Recorded Confirmed citalopram 20 mg tablet 20 mg PO DAILY 03/10/21 08/11/22 etonogestrel 68 mg subdermal 68 mg subdermal DIRECTED 03/10/21 08/11/22 implant (Nexplanon) nortriptyline 50 mg capsule 50 mg PO PRN PRN Migraine Headache 03/10/21 08/11/22 atenolol 25 mg tablet mg 08/11/22 Allergies Allergy/AdvReac Type Severity Reaction Status Date / Time aspirin Allergy Unknown Verified 07/02/23 13:22 cephalexin Allergy Unknown Verified 07/02/23 13:22 naproxen Allergy Unknown Verified 07/02/23 13:22 Review of Systems Review of Systems: CONSTITUTIONAL: Denies fever, chills EYES: Denies visual changes, redness, or discharge. ENT: Denies rhinorrhea, congestion, sore throat, or otalgia. CARDIOVASCULAR: Denies chest pain, palpitations, or edema. RESPIRATORY: Denies cough or dyspnea. GASTROINTESTINAL: Denies abdominal pain, nausea, vomiting, or diarrhea. GENITOURINARY: Denies dysuria or hematuria. SKIN: Denies rash or itching. MUSCULOSKELETAL: Denies back pain, joint pain, or myalgia. NEUROLOGIC: See HPI PSYCHIATRIC: Denies anxiety or depression. [facility] Past Medical History Medical History Anxiety Tachycardia Social History Social History Smoking status: Never smoker Gender identity (if verbalized by the patient): Female Exam Narrative: GENERAL: Well-appearing, in no acute distress. Patient resting comfortably in exam bed. She is pleasant and conversational. HEAD: Normocephalic. No areas of focal edema, abrasions or lacerations to scalp EYES: PERRLA, EOMI ENT: Nares clear. Mucous membranes moist. Oropharynx without tonsillar hypertrophy exudate or other lesions. NECK: Supple. CHEST: No respiratory distress. Clear to auscultation, no adventitious breath sounds. HEART: Regular rate and rhythm. No murmur heard. Normal peripheral pulses. EXTREMITIES: Normal range of motion. No edema. SKIN: Warm, dry, no rash. NEURO: No focal deficits. Alert and oriented x3. Cranial nerves II through XII intact. Strength 5/5 in BUE and BLE. Sensation intact throughout. No pronator drift. Normal [id number]. Patient ambulatory. PSYCH: Normal mood and affect. Course Vital Signs Vital signs: Vital Signs Temperature 98.1 F 07/02/23 10:38 Pulse Rate 110 H 07/02/23 10:38 Respiratory Rate 18 07/02/23 10:38 Blood Pressure 115/81 07/02/23 10:38 Pulse Oximetry 100 07/02/23 10:38 Oxygen Delivery Room Air 07/02/23 10:38 Temperature 98.1 F 07/02/23 10:38 Pulse Rate 110 H 07/02/23 10:38 Respiratory Rate 18 07/02/23 10:38 Blood Pressure 115/81 07/02/23 10:38 Pulse Oximetry 100 07/02/23 10:38 Oxygen Delivery Room Air 07/02/23 10:38 MDM - Head Injury MDM Narrative Medical decision making narrative: 22-year-old female reports for evaluation from her doctor's office for a CT scan. Patient hit her head on an x-ray machine approximately 12 hours ago. No LOC, she is neurovascular
--- NOTE | 2023-07-02 13:10 | PC.NURSE ---
medications given per order
[2023-07-02] MEDS: METOCLOPRAMIDE HCL 10 MG TABLET PO (13:14)
[2023-07-02] MEDS: diphenhydrAMINE HCl CAP 25 MG CAPSULE PO (13:14)
[2023-07-02] MEDS: ACETAMINOPHEN 500 MG TABLET 1000 MG PO (13:15)
== END 2023-07-02 15:11 | disposition home or self-care (01) ==
PROVIDERS: Emergency Provider Physician Assistant; PCP Internal Medicine
DX: S09.90XA Unspecified injury of head, initial encounter (principal); W22.09XA Striking against other stationary object, initial encounter; Y99.0 Civilian activity done for income or pay
CPT/HCPCS: 70450; 99284; A9270